=== PATIENT | female | born 1975 ===

== ENCOUNTER → 2023-01-17 | Outpatient (CLI) | payer BC ==
[2023-01-17 07:36] LABS: Basophils # (auto) 0 10 ^3/uL (0-0.2); Basophils % (auto) 0.3 % (0.0-2.0); Eosinophils # (auto) 0.1 10 ^3/uL (0-0.8); Eosinophils % (auto) 0.8 % (0.0-7.0); Hematocrit 37.8 % (36.0-46.0); Hemoglobin 12.8 g/dL (12.2-16.2); Lymphocytes # (auto) 1.4 10 ^3/uL (0.4-5.4); Lymphocytes % (auto) 20.4 % (10.0-50.0); Mean Corpuscular Hemoglobin 30.6 pg (28.0-32.0); Mean Corpuscular Hgb Conc. 33.9 g/dL (32.0-36.0); Mean Corpuscular Volume 90.1 fL (80.0-100.0); Monocytes # (auto) 0.5 10 ^3/uL (0-1.3); Monocytes % (auto) 6.9 % (0.0-12.0); Neutrophils % (auto) 71.6 % (37.0-80.0); Nucleated Red Blood Cells % 0.1 %; Red Blood Cells 4.19 10^6/uL (4.0-5.20); Red Cell Distribution Width 13.4 % (11.8-14.3)
[2023-01-17 07:47] LABS: Albumin 3.9 g/dL (3.4-5.0); Calcium 8.5 mg/dL (8.5-10.1); Potassium 3.7 mmol/L (3.5-5.1)
[2023-01-17 07:49] LABS: Urine Bacteria FEW /hpf (None Seen); Urine Blood Negative /uL (Negative); Urine Mucus FEW (None Seen); Urine Specific Gravity 1.023 (1.001-1.035); Urine WBC 10 /hpf (0 - 5)
[2023-01-17 08:11] LABS: % Iron Saturation 33.5 % (15-50); BUN/Creatinine Ratio 26.9 (10.0-20.0); Bilirubin, Direct 0.2 mg/dL (0-0.2); Bilirubin, Total 0.6 mg/dL (0.2-1.0); Total Protein 7.4 g/dL (6.4-8.2)
[2023-01-17 08:17] LABS: Folate (Folic Acid) 6.18 ng/mL (5.38-24)
== END | disposition home or self-care (01) ==
LOC: LAB 06:38
PROVIDERS: ATTEND Family Medicine
DX: Z00.00 Encounter for general adult medical examination without abnormal findings (principal); Z11.3 Encounter for screening for infections with a predominantly sexual mode of transmission; D50.8 Other iron deficiency anemias; B00.9 Herpesviral infection, unspecified
CPT/HCPCS: 36415; 80053; 80061; 80074; 80076; 81001; 82607; 82746; 83036; 83540; 83550; 84403; 84443; 84550; 85025; 87086

== ENCOUNTER 2023-04-16 09:25 | Emergency (ER) | payer BC ==
[~2023-04-16] VITALS: Ht 170.2 cm; Wt 78.6 kg
[2023-04-16 09:59] VITALS: BP 141/99; PULSE 73; RESP 18; TEMP 97.6; O2SAT 98
[2023-04-16] MEDS ORDERED: KETOROLAC TROMETH 30 MG/ML 1ML VIAL IM ONE (10:30)
[2023-04-16] MEDS ORDERED: DexAMETHasone SOD PHOS 10MG/1ML VIAL INJ IM ONE (10:30)
[2023-04-16] MEDS ORDERED: CYCL-611 PO (10:37)
[2023-04-16] MEDS ORDERED: IBUP1TAB5 PO (10:37)
== END 2023-04-16 10:38 | disposition home or self-care (01) ==
LOC: ER 09:25
DX: M54.6 Pain in thoracic spine (principal); E78.5 Hyperlipidemia, unspecified; Z90.49 Acquired absence of other specified parts of digestive tract; Z98.890 Other specified postprocedural states; Z87.891 Personal history of nicotine dependence; Z79.1 Long term (current) use of non-steroidal anti-inflammatories (NSAID); Z79.899 Other long term (current) drug therapy
CPT/HCPCS: 93005; 96372; 99284; J1100; J1885

== ENCOUNTER → 2023-08-22 | Outpatient (CLI) | payer BC ==
[~2023-08-22] MED LIST: CYCL-611 PO; IBUP1TAB5 PO
[2023-08-22 10:59] LABS: Cholesterol 181 mg/dL (< 200); LDL Cholesterol 112 mg/dL (< 100)
[2023-08-22 11:00] LABS: Triglycerides 61 mg/dL (< 150)
[2023-08-22 11:02] LABS: HDL Cholesterol 57 mg/dL (40-59)
[2023-08-23 07:07] LABS: RPR Non Reactive (Non Reactive)
[2023-08-23 23:07] LABS: Chlamydia Trachomatis, NAA Negative (Negative); Neisseria gonorrhoeae, NAA Negative (Negative)
== END | disposition home or self-care (01) ==
LOC: LAB 09:57
PROVIDERS: ATTEND Family Medicine
DX: N76.0 Acute vaginitis (principal); B00.9 Herpesviral infection, unspecified; R30.0 Dysuria; E78.2 Mixed hyperlipidemia
CPT/HCPCS: 36415; 80061; 86592; 86703; 86705; 86709